=== PATIENT | male | born 1960 | race Two or more races ===

== ENCOUNTER → 2023-04-15 | Outpatient (CLI) | payer MEDICAID ==
[2023-04-15 11:00] LABS: Urine Bacteria NONE SEEN /hpf (None Seen); Urine Blood Negative /uL (Negative); Urine Clarity Clear (Clear); Urine Color Yellow (Yellow); Urine Protein, UAD Negative (Negative); Urine Urobilinogen Normal (Negative); Urine WBC <1 /hpf (0 - 3)
[2023-04-15 11:22] LABS: Prostate Specific Antigen 0.29 ng/mL (0.0-4.0)
[2023-04-15 11:24] LABS: Alanine Aminotransferase 35 U/L (7-40); Albumin 4.4 g/dL (3.2-4.8); Alkaline Phosphatase 82 U/L (46-116); Anion Gap 5 (5-15); Aspartate Aminotransferase 15 U/L (13-40); BUN/Creatinine Ratio 16.3 (10.0-20.0); Blood Urea Nitrogen 14 mg/dL (9-23); Calcium 9.5 mg/dL (8.5-10.1); Carbon Dioxide 27 mmol/L (20-30); Chloride 103 mmol/L (98-107); Glucose 146 mg/dL (74-106); LDL Cholesterol 77 mg/dL (< 100); Potassium 4.5 mmol/L (3.5-5.1); Sodium 135 mmol/L (136-145); Triglycerides 207 mg/dL (< 150)
[2023-04-15 11:25] LABS: Bilirubin, Total 0.6 mg/dL (0.2-1.0); Cholesterol 159 mg/dL (< 200); HDL Cholesterol 33 mg/dL (40-59); Total Protein 7.2 g/dL (5.7-8.2)
[2023-04-15 11:27] LABS: Free T3 3.38 pg/mL (2.3-4.2); Free T4 (Free Thyroxine) 1.05 ng/dL (0.89-1.76)
[2023-04-15 11:41] LABS: Magnesium 1.8 mg/dL (1.6-2.6)
== END | disposition home or self-care (01) ==
LOC: LAB 10:01
PROVIDERS: ATTEND Internal Medicine
DX: I10 Essential (primary) hypertension (principal); E11.9 Type 2 diabetes mellitus without complications
CPT/HCPCS: 36415; 80053; 80061; 81001; 83036; 83735; 84153; 84439; 84443; 84481

== ENCOUNTER → 2023-06-03 | Outpatient (CLI) | payer MEDICAID ==
[2023-06-03 09:41] LABS: Basophils # (auto) 0.1 10 ^3/uL (0-0.2); Eosinophils # (auto) 0.2 10 ^3/uL (0-0.8); Eosinophils % (auto) 3.3 % (0.0-7.0); Hematocrit 46.6 % (41.0-53.0); Hemoglobin 15.7 g/dL (13.5-17.5); Lymphocytes % (auto) 42.4 % (10.0-50.0); Mean Corpuscular Hemoglobin 28.6 pg (28.0-32.0); Mean Corpuscular Hgb Conc. 33.8 g/dL (32.0-36.0); Mean Corpuscular Volume 84.8 fL (80.0-100.0); Monocytes # (auto) 0.6 10 ^3/uL (0-1.3); Monocytes % (auto) 7.8 % (0.0-12.0); Neutrophils # (auto) 3.3 10 ^3/uL (1.6-8.6); Neutrophils % (auto) 45.5 % (37.0-80.0); Nucleated Red Blood Cells % 0.1 %; Red Blood Cells 5.49 10^6/uL (4.5-5.90); Red Cell Distribution Width 13.6 % (11.8-14.3); White Blood Cell 7.2 10^3/uL (4.4-10.8)
[2023-06-03 10:13] LABS: Alanine Aminotransferase 30 U/L (7-40); Albumin 4.4 g/dL (3.2-4.8); Alkaline Phosphatase 99 U/L (46-116); Anion Gap 4 (5-15); Aspartate Aminotransferase 12 U/L (13-40); BUN/Creatinine Ratio 16.1 (10.0-20.0); Bilirubin, Total 0.5 mg/dL (0.2-1.0); Blood Urea Nitrogen 15 mg/dL (9-23); Calcium 9.4 mg/dL (8.5-10.1); Carbon Dioxide 31 mmol/L (20-30); Chloride 101 mmol/L (98-107); Cholesterol 173 mg/dL (< 200); Glucose 173 mg/dL (74-106); HDL Cholesterol 32 mg/dL (40-59); LDL Cholesterol 72 mg/dL (< 100); Potassium 4.3 mmol/L (3.5-5.1); Sodium 136 mmol/L (136-145); Total Protein 6.9 g/dL (5.7-8.2); Triglycerides 349 mg/dL (< 150)
== END | disposition home or self-care (01) ==
LOC: LAB 09:25
PROVIDERS: ATTEND Nurse Practitioner Gerontology
DX: E11.69 Type 2 diabetes mellitus with other specified complication (principal); I10 Essential (primary) hypertension
CPT/HCPCS: 36415; 80053; 80061; 83036; 85025

== ENCOUNTER → 2023-10-31 | Outpatient (CLI) | payer MEDICAID ==
[2023-10-31 09:41] LABS: Urine Bacteria None Seen /hpf (None Seen)
[2023-10-31 10:07] LABS: Basophils # (auto) 0 10 ^3/uL (0-0.2); Basophils % (auto) 0.6 % (0.0-2.0); Eosinophils # (auto) 0.2 10 ^3/uL (0-0.8); Eosinophils % (auto) 3.2 % (0.0-7.0); Hematocrit 46.6 % (41.0-53.0); Hemoglobin 15.8 g/dL (13.5-17.5); Lymphocytes # (auto) 3.5 10 ^3/uL (0.4-5.4); Lymphocytes % (auto) 44.2 % (10.0-50.0); Mean Corpuscular Hgb Conc. 33.9 g/dL (32.0-36.0); Mean Corpuscular Volume 85.4 fL (80.0-100.0); Monocytes # (auto) 0.6 10 ^3/uL (0-1.3); Neutrophils # (auto) 3.4 10 ^3/uL (1.6-8.6); Nucleated Red Blood Cells % 0.1 %; Red Blood Cells 5.46 10^6/uL (4.5-5.90); Red Cell Distribution Width 13.8 % (11.8-14.3); White Blood Cell 7.8 10^3/uL (4.4-10.8)
[2023-10-31 10:31] LABS: Urine Blood 3+ /uL (Negative); Urine Clarity Clear (Clear); Urine Color Light-Yellow (Yellow); Urine Mucus FEW (None Seen); Urine Protein, UAD TRACE (Negative); Urine Specific Gravity 1.027 (1.001-1.035); Urine Urobilinogen Normal (Negative); Urine WBC 7 /hpf (0 - 3)
[2023-10-31 10:38] LABS: Creatinine, Urine 124.69 mg/dL (30.0-125.0)
[2023-10-31 10:43] LABS: Alanine Aminotransferase 41 U/L (7-40); Albumin 4.2 g/dL (3.2-4.8); Alkaline Phosphatase 92 U/L (46-116); Anion Gap 2 (5-15); Aspartate Aminotransferase 21 U/L (13-40); BUN/Creatinine Ratio 14.4 (10.0-20.0); Blood Urea Nitrogen 13 mg/dL (9-23); Calcium 9.3 mg/dL (8.7-10.4); Carbon Dioxide 30 mmol/L (20-30); Chloride 105 mmol/L (98-107); Glucose 154 mg/dL (74-106); LDL Cholesterol 55 mg/dL (< 100); Potassium 4.6 mmol/L (3.5-5.1); Sodium 137 mmol/L (136-145); Triglycerides 201 mg/dL (< 150)
[2023-10-31 10:44] LABS: Bilirubin, Total 0.7 mg/dL (0.2-1.0); Cholesterol 126 mg/dL (< 200); HDL Cholesterol 33 mg/dL (40-59)
[2023-10-31 14:16] LABS: Free T4 (Free Thyroxine) 1.16 ng/dL (0.89-1.76)
== END | disposition home or self-care (01) ==
LOC: LAB 09:22
PROVIDERS: ATTEND Internal Medicine
DX: I10 Essential (primary) hypertension (principal); E11.9 Type 2 diabetes mellitus without complications; E78.49 Other hyperlipidemia; Z71.2 Person consulting for explanation of examination or test findings
CPT/HCPCS: 36415; 80053; 80061; 81001; 82043; 82306; 82570; 82607; 83036; 84439; 84443; 85025

== ENCOUNTER 2023-11-07 08:58 | Inpatient (IN) | payer MEDICAID ==
[~2023-11-07] VITALS: Ht 167.6 cm; Wt 93.9 kg
[2023-11-07 11:02] VITALS: PULSE 75; RESP 18; O2SAT 94
[2023-11-07 11:25] LABS: Urine Bacteria None Seen /hpf (None Seen)
[2023-11-07 11:34] LABS: Urine Blood 3+ /uL (Negative); Urine Clarity Clear (Clear); Urine Color Light-Yellow (Yellow); Urine Protein, UAD Negative (Negative); Urine Specific Gravity 1.023 (1.001-1.035); Urine Urobilinogen Normal (Negative); Urine WBC 1 /hpf (0 - 3)
[2023-11-07] MEDS: ONDANSETRON HCL 4 MG/2 ML VIAL IV ONE (12:41)
[2023-11-07] MEDS: SODIUM CHLORIDE 0.9% 1,000 ML IV ONE (12:41)
[2023-11-07] MEDS: KETOROLAC TROMETH 30 MG/ML 1ML VIAL IV ONE (12:41)
[2023-11-07] MEDS: MORPHINE SULFATE 4 MG/ML SYR/VIAL IV ONE (12:44)
[2023-11-07 14:22] LABS: Basophils # (auto) 0 10 ^3/uL (0-0.2); Basophils % (auto) 0.3 % (0.0-2.0); Eosinophils # (auto) 0.1 10 ^3/uL (0-0.8); Eosinophils % (auto) 0.7 % (0.0-7.0); Hematocrit 46.5 % (41.0-53.0); Hemoglobin 15.6 g/dL (13.5-17.5); Lymphocytes # (auto) 3.2 10 ^3/uL (0.4-5.4); Lymphocytes % (auto) 29.7 % (10.0-50.0); Mean Corpuscular Hemoglobin 28.9 pg (28.0-32.0); Mean Corpuscular Hgb Conc. 33.5 g/dL (32.0-36.0); Mean Corpuscular Volume 86.3 fL (80.0-100.0); Monocytes # (auto) 0.9 10 ^3/uL (0-1.3); Monocytes % (auto) 8.8 % (0.0-12.0); Neutrophils # (auto) 6.4 10 ^3/uL (1.6-8.6); Neutrophils % (auto) 60.5 % (37.0-80.0); Nucleated Red Blood Cells % 0.1 %; Platelet Count (auto) 221 10^3/uL (140-450); Red Blood Cells 5.38 10^6/uL (4.5-5.90); Red Cell Distribution Width 14.3 % (11.8-14.3); White Blood Cell 10.7 10^3/uL (4.4-10.8)
[2023-11-07 14:45] LABS: Alanine Aminotransferase 38 U/L (7-40); Albumin 4.1 g/dL (3.2-4.8); Alkaline Phosphatase 76 U/L (46-116); Anion Gap 6 (5-15); Aspartate Aminotransferase 18 U/L (13-40); BUN/Creatinine Ratio 23.1 (10.0-20.0); Blood Urea Nitrogen 21 mg/dL (9-23); Carbon Dioxide 26 mmol/L (20-30); Chloride 106 mmol/L (98-107); Glucose 149 mg/dL (74-106); Lipase 240 U/L (12-53); Potassium 4.4 mmol/L (3.5-5.1); Sodium 138 mmol/L (136-145)
[2023-11-07 14:46] LABS: Bilirubin, Total 0.8 mg/dL (0.2-1.0); Total Protein 6.8 g/dL (5.7-8.2)
[2023-11-07] MEDS ORDERED: DEXTROSE (50%) 50ML SYRG IV PRN (15:00)
[2023-11-07] MEDS: TAMSULOSIN HYDROCHLORIDE 0.4 MG CAP PO SCH (15:23)
[2023-11-07] MEDS: MANNITOL FTV 25% 12.5 GM/50 ML 50 ML IV ONE (15:54)
[2023-11-07] MEDS ORDERED: HYDROmorphone HCL 2 MG/ML VL/or syr IV PRN (16:15)
[2023-11-07] MEDS ORDERED: ONDANSETRON HCL 4 MG/2 ML VIAL IV PRN (16:15)
[2023-11-07] MEDS ORDERED: ACETAMINOPHEN 325 MG TAB PO PRN (16:15)
[2023-11-07] MEDS: ACCU-CHEK COMFORT CURVE STRIP VI SCH (17:00)
[2023-11-07] MEDS: KETOROLAC TROMETH 30 MG/ML 1ML VIAL IV PRN (17:24)
[2023-11-07] MEDS: InsuLIN REG 1unit/0.01ml Soln (100units/ml) SC SCH (17:50)
[2023-11-07 18:20] VITALS: BP 149/86; PULSE 72; RESP 19; TEMP 98.6; O2SAT 94
[2023-11-07 18:37] VITALS: BP 149/86; PULSE 72; RESP 19; TEMP 98.7; O2SAT 94
[2023-11-07 20:00] VITALS: PULSE 82; RESP 20; O2SAT 94
[2023-11-07 21:00] VITALS: BP 134/77; PULSE 82; RESP 20; TEMP 98.1; O2SAT 94
[2023-11-07] MEDS: SODIUM CHLOR 0.9% PF (SALINE LOCK) 10ML VIAL/SYR IV SCH (21:43)
[2023-11-08] VITALS (7 sets, daily range): BP systolic 120–147; BP diastolic 69–82; PULSE 78–88; RESP 16–20; TEMP 97.6–98.5; O2SAT 94–96
[2023-11-08 04:55] LABS: Basophils # (auto) 0 10 ^3/uL (0-0.2); Basophils % (auto) 0.3 % (0.0-2.0); Eosinophils # (auto) 0.1 10 ^3/uL (0-0.8); Eosinophils % (auto) 1.2 % (0.0-7.0); Hematocrit 44.7 % (41.0-53.0); Hemoglobin 15.2 g/dL (13.5-17.5); Lymphocytes # (auto) 1.8 10 ^3/uL (0.4-5.4); Lymphocytes % (auto) 18.3 % (10.0-50.0); Mean Corpuscular Hemoglobin 29.1 pg (28.0-32.0); Mean Corpuscular Hgb Conc. 33.9 g/dL (32.0-36.0); Mean Corpuscular Volume 85.8 fL (80.0-100.0); Monocytes # (auto) 1.1 10 ^3/uL (0-1.3); Monocytes % (auto) 10.9 % (0.0-12.0); Neutrophils # (auto) 6.7 10 ^3/uL (1.6-8.6); Neutrophils % (auto) 69.3 % (37.0-80.0); Platelet Count (auto) 212 10^3/uL (140-450); Red Blood Cells 5.22 10^6/uL (4.5-5.90); White Blood Cell 9.6 10^3/uL (4.4-10.8)
[2023-11-08 05:28] LABS: Alanine Aminotransferase 31 U/L (7-40); Albumin 3.9 g/dL (3.2-4.8); Alkaline Phosphatase 75 U/L (46-116); Anion Gap 8 (5-15); Aspartate Aminotransferase 15 U/L (13-40); BUN/Creatinine Ratio 19.4 (10.0-20.0); Bilirubin, Total 0.7 mg/dL (0.2-1.0); Blood Urea Nitrogen 25 mg/dL (9-23); Carbon Dioxide 25 mmol/L (20-30); Chloride 103 mmol/L (98-107); Glucose 186 mg/dL (74-106); Potassium 4.4 mmol/L (3.5-5.1); Sodium 136 mmol/L (136-145); Total Protein 6.7 g/dL (5.7-8.2)
[2023-11-08] MEDS: PANTOPRAZOLE 40 MG/10 ML VIAL INJ IV SCH (09:34)
[2023-11-08] MEDS: HYDROcodone-ACET 5/325MG TAB PO PRN (09:39)
[2023-11-08] MEDS ORDERED: ATOR10TA52 PO (14:50)
[2023-11-08] MEDS ORDERED: OMEP-434 PO (14:50)
[2023-11-08] MEDS ORDERED: LISI2.5T47 PO (14:50)
[2023-11-08] MEDS ORDERED: CHOL100029 PO (14:50)
[2023-11-08] MEDS ORDERED: ACAR25TA PO (14:50)
[2023-11-09 01:00] VITALS: BP 142/77; PULSE 75; RESP 19; TEMP 98.6; O2SAT 95
[2023-11-09 05:00] VITALS: BP 128/80; PULSE 83; RESP 17; TEMP 98.3; O2SAT 94
[2023-11-09] MEDS: PANTOPRAZOLE 40 MG TAB PO SCH (06:04)
[2023-11-09 06:39] LABS: Basophils # (auto) 0 10 ^3/uL (0-0.2); Basophils % (auto) 0.5 % (0.0-2.0); Eosinophils # (auto) 0.1 10 ^3/uL (0-0.8); Eosinophils % (auto) 1.3 % (0.0-7.0); Hematocrit 44.7 % (41.0-53.0); Hemoglobin 14.8 g/dL (13.5-17.5); Lymphocytes % (auto) 20.1 % (10.0-50.0); Mean Corpuscular Hemoglobin 28.4 pg (28.0-32.0); Mean Corpuscular Hgb Conc. 33.1 g/dL (32.0-36.0); Mean Corpuscular Volume 85.9 fL (80.0-100.0); Monocytes # (auto) 0.7 10 ^3/uL (0-1.3); Monocytes % (auto) 7.7 % (0.0-12.0); Neutrophils # (auto) 6.9 10 ^3/uL (1.6-8.6); Neutrophils % (auto) 70.4 % (37.0-80.0); Nucleated Red Blood Cells % 0.2 %; Platelet Count (auto) 206 10^3/uL (140-450); Red Cell Distribution Width 13.8 % (11.8-14.3); White Blood Cell 9.7 10^3/uL (4.4-10.8)
[2023-11-09 07:09] LABS: Alanine Aminotransferase 27 U/L (7-40); Albumin 3.8 g/dL (3.2-4.8); Alkaline Phosphatase 74 U/L (46-116); Anion Gap 5 (5-15); Aspartate Aminotransferase 16 U/L (13-40); Bilirubin, Total 0.5 mg/dL (0.2-1.0); Calcium 8.9 mg/dL (8.7-10.4); Carbon Dioxide 23 mmol/L (20-30); Chloride 104 mmol/L (98-107); Glucose 208 mg/dL (74-106); Potassium 5.3 mmol/L (3.5-5.1); Sodium 132 mmol/L (136-145); Total Protein 6.6 g/dL (5.7-8.2)
[2023-11-09 07:36] LABS: BUN/Creatinine Ratio 14.8 (10.0-20.0); Blood Urea Nitrogen 20 mg/dL (9-23)
[2023-11-09] MEDS: cefTRIAXone 1GM/50ML D5W 50 ML IV SCH (08:04)
[2023-11-09] MEDS: SODIUM ZIRCONIUM CYCL 10 GM PAK PO ONE (08:04)
[2023-11-09] MEDS: SODIUM CHLORIDE 0.9% 1,000 ML IV SCH (08:04)
[2023-11-09 09:00] VITALS: BP 146/80; PULSE 69; RESP 18; TEMP 98; O2SAT 97
[2023-11-09] MEDS: INSULIN LANTUS (GLARGINE) 1 /0.01ml (100units/ml) SC SCH (12:32)
[2023-11-09 13:00] VITALS: BP 141/78; PULSE 80; RESP 18; TEMP 98.4; O2SAT 95
[2023-11-09] MEDS: MANNITOL FTV 25% 12.5 GM/50 ML 50 ML IV ONE (13:55)
[2023-11-09 17:00] VITALS: BP 156/83; PULSE 87; RESP 18; TEMP 99.1; O2SAT 96
[2023-11-09] MEDS: MORPHINE SULFATE INJ 2 MG/ml SYRG IV PRN (17:39)
[2023-11-09] MEDS: hydrALAZINE HCL 20 MG/ML VL IV PRN (18:10)
[2023-11-09] MEDS: HYDROcodone-ACET 7.5/325MG TAB PO PRN (20:51)
[2023-11-09 22:00] VITALS: BP 153/89; PULSE 93; RESP 17; TEMP 99.2; O2SAT 96
[2023-11-10] VITALS (10 sets, daily range): BP systolic 140–157; BP diastolic 73–93; PULSE 81–88; RESP 14–20; TEMP 98.2–99; O2SAT 95–96
[2023-11-10 07:02] LABS: Basophils # (auto) 0 10 ^3/uL (0-0.2); Basophils % (auto) 0.4 % (0.0-2.0); Eosinophils # (auto) 0 10 ^3/uL (0-0.8); Eosinophils % (auto) 0.4 % (0.0-7.0); Hemoglobin 14.5 g/dL (13.5-17.5); Lymphocytes # (auto) 1.7 10 ^3/uL (0.4-5.4); Lymphocytes % (auto) 18.4 % (10.0-50.0); Mean Corpuscular Hemoglobin 28.6 pg (28.0-32.0); Mean Corpuscular Hgb Conc. 33.6 g/dL (32.0-36.0); Mean Corpuscular Volume 85.2 fL (80.0-100.0); Monocytes # (auto) 0.8 10 ^3/uL (0-1.3); Monocytes % (auto) 8.2 % (0.0-12.0); Neutrophils # (auto) 6.9 10 ^3/uL (1.6-8.6); Neutrophils % (auto) 72.6 % (37.0-80.0); Platelet Count (auto) 216 10^3/uL (140-450); Red Blood Cells 5.05 10^6/uL (4.5-5.90); Red Cell Distribution Width 13.8 % (11.8-14.3); White Blood Cell 9.5 10^3/uL (4.4-10.8)
[2023-11-10 07:20] LABS: Alanine Aminotransferase 21 U/L (7-40); Albumin 3.9 g/dL (3.2-4.8); Alkaline Phosphatase 69 U/L (46-116); Anion Gap 6 (5-15); Aspartate Aminotransferase 10 U/L (13-40); BUN/Creatinine Ratio 11.8 (10.0-20.0); Blood Urea Nitrogen 15 mg/dL (9-23); Calcium 8.7 mg/dL (8.7-10.4); Carbon Dioxide 25 mmol/L (20-30); Chloride 105 mmol/L (98-107); Glucose 183 mg/dL (74-106); Potassium 4.3 mmol/L (3.5-5.1); Sodium 136 mmol/L (136-145)
[2023-11-10 07:21] LABS: Bilirubin, Total 0.7 mg/dL (0.2-1.0); Total Protein 6.6 g/dL (5.7-8.2)
[2023-11-10] MEDS ORDERED: amLODIPine BESYLATE 5 MG TAB PO STA (09:50)
[2023-11-10] MEDS: amLODIPine BESYLATE 5 MG TAB PO SCH (12:41)
[2023-11-10] MEDS: LACTULOSE 20Gm/30ML SOLN PO ONE (12:44)
[2023-11-11] VITALS (12 sets, daily range): BP systolic 135–186; BP diastolic 72–102; PULSE 78–100; RESP 16–18; TEMP 97.8–98.4; O2SAT 92–100
[2023-11-11 06:58] LABS: Basophils # (auto) 0 10 ^3/uL (0-0.2); Basophils % (auto) 0.3 % (0.0-2.0); Eosinophils # (auto) 0 10 ^3/uL (0-0.8); Eosinophils % (auto) 0.1 % (0.0-7.0); Hematocrit 45.4 % (41.0-53.0); Hemoglobin 15.5 g/dL (13.5-17.5); Lymphocytes # (auto) 1.4 10 ^3/uL (0.4-5.4); Lymphocytes % (auto) 13.4 % (10.0-50.0); Mean Corpuscular Hemoglobin 29.4 pg (28.0-32.0); Mean Corpuscular Hgb Conc. 34.1 g/dL (32.0-36.0); Mean Corpuscular Volume 86.3 fL (80.0-100.0); Monocytes # (auto) 0.8 10 ^3/uL (0-1.3); Monocytes % (auto) 7.8 % (0.0-12.0); Neutrophils # (auto) 8.5 10 ^3/uL (1.6-8.6); Neutrophils % (auto) 78.4 % (37.0-80.0); Nucleated Red Blood Cells % 0.1 %; Platelet Count (auto) 259 10^3/uL (140-450); Red Blood Cells 5.26 10^6/uL (4.5-5.90); Red Cell Distribution Width 13.6 % (11.8-14.3); White Blood Cell 10.8 10^3/uL (4.4-10.8)
[2023-11-11 06:59] LABS: INR 1.04 (0.9-1.15); Partial Thromboplastin Time 27.8 SEC (24.5-34.5)
[2023-11-11 07:02] LABS: Anion Gap 9 (5-15); Calcium 9.3 mg/dL (8.7-10.4); Carbon Dioxide 24 mmol/L (20-30); Chloride 102 mmol/L (98-107); Potassium 4.1 mmol/L (3.5-5.1); Sodium 135 mmol/L (136-145)
[2023-11-11 07:09] LABS: BUN/Creatinine Ratio 10.7 (10.0-20.0); Blood Urea Nitrogen 13 mg/dL (9-23); Glucose 208 mg/dL (74-106)
[2023-11-11] MEDS ORDERED: fentaNYL CITRATE 100 MCG/2 ML VL ONE ×2 (15:56→16:40)
[2023-11-11] MEDS ORDERED: PROPOFOL 10 MG/ML 20 ML IV ONE (15:56)
[2023-11-11] MEDS: IOHEXOL 300 MG/ML 100ML BOTTLE IJ ONE (17:44)
[2023-11-11] MEDS: CIPROFLOXACIN 400MG/200ML 200 ML IV ONE (17:44)
[2023-11-11] MEDS ORDERED: MEPERIDINE HCL (25 MG/ML) 1ML VIAL IV PRN (18:00)
[2023-11-11] MEDS: ONDANSETRON HCL 4 MG/2 ML VIAL IV ONE (18:00)
[2023-11-11] MEDS ORDERED: HYDROmorphone HCL 2 MG/ML VL/or syr IV PRN (18:00)
[2023-11-12] VITALS (7 sets, daily range): BP systolic 115–151; BP diastolic 62–89; PULSE 84–96; RESP 16–19; TEMP 97.6–98.2; O2SAT 92–95
[2023-11-12 06:48] LABS: Basophils # (auto) 0 10 ^3/uL (0-0.2); Basophils % (auto) 0.5 % (0.0-2.0); Eosinophils # (auto) 0 10 ^3/uL (0-0.8); Eosinophils % (auto) 0.1 % (0.0-7.0); Hematocrit 41.4 % (41.0-53.0); Lymphocytes # (auto) 1.3 10 ^3/uL (0.4-5.4); Lymphocytes % (auto) 13.4 % (10.0-50.0); Mean Corpuscular Hemoglobin 28.8 pg (28.0-32.0); Mean Corpuscular Hgb Conc. 33.9 g/dL (32.0-36.0); Monocytes # (auto) 0.7 10 ^3/uL (0-1.3); Monocytes % (auto) 6.9 % (0.0-12.0); Neutrophils # (auto) 7.9 10 ^3/uL (1.6-8.6); Neutrophils % (auto) 79.1 % (37.0-80.0); Platelet Count (auto) 252 10^3/uL (140-450); Red Blood Cells 4.87 10^6/uL (4.5-5.90); Red Cell Distribution Width 13.6 % (11.8-14.3); White Blood Cell 9.9 10^3/uL (4.4-10.8)
[2023-11-12 06:59] LABS: Alanine Aminotransferase 25 U/L (7-40); Albumin 3.8 g/dL (3.2-4.8); Alkaline Phosphatase 71 U/L (46-116); Anion Gap 4 (5-15); Aspartate Aminotransferase 9 U/L (13-40); BUN/Creatinine Ratio 15.6 (10.0-20.0); Blood Urea Nitrogen 14 mg/dL (9-23); Calcium 8.9 mg/dL (8.7-10.4); Carbon Dioxide 28 mmol/L (20-30); Chloride 107 mmol/L (98-107); Glucose 213 mg/dL (74-106); Potassium 4.6 mmol/L (3.5-5.1); Sodium 139 mmol/L (136-145)
[2023-11-12 07:00] LABS: Bilirubin, Total 0.5 mg/dL (0.2-1.0); Total Protein 6.6 g/dL (5.7-8.2)
[2023-11-12] MEDS: ENOXAPARIN SOD 40 MG/0.4 ML SYRINGE SC SCH (09:34)
[2023-11-12] MEDS: INSULIN LANTUS (GLARGINE) 1 /0.01ml (100units/ml) SC SCH (10:00)
[2023-11-12] MEDS ORDERED: AML5T PO (19:29)
[2023-11-12] MEDS ORDERED: TAMS-35 PO (19:29)
[2023-11-12] MEDS ORDERED: ACET-1882 PO (19:29)
== END 2023-11-12 19:58 | disposition home or self-care (01) | DRG 465 ==
LOC: ER 08:58 → OVERFLOW 16:09 → WEST WING 16:09
PROVIDERS: ADMIT Internal Medicine Pulmonary Disease; ATTEND Emergency Medicine
PROC: 0TF78ZZ Fragmentation in Left Ureter, Via Natural or Artificial Opening Endoscopic (ICD-10-PCS; 2023-11-11)
PROC: 0T778DZ Dilation of Left Ureter with Intraluminal Device, Via Natural or Artificial Opening Endoscopic (ICD-10-PCS; principal; 2023-11-11 16:14)
PROC: BT1F1ZZ Fluoroscopy of Left Kidney, Ureter and Bladder using Low Osmolar Contrast (ICD-10-PCS; 2023-11-11 16:14)
DX: N13.2 Hydronephrosis with renal and ureteral calculous obstruction (principal); N17.9 Acute kidney failure, unspecified; E11.9 Type 2 diabetes mellitus without complications; I10 Essential (primary) hypertension; E87.5 Hyperkalemia
CPT/HCPCS: 36415; 74018; 74176; 76775; 80048; 80053; 81001; 82962; 83690; 83735; 85025; 85610; 85730; 86850; 86900; 86901; 93005; 96361; 96365; 96375; 96376; G0378; J1815; J1885; J2405; J2470; J2704

== ENCOUNTER 2023-11-20 10:09 | Inpatient (IN) | payer MEDICAID ==
[~2023-11-20] VITALS: Ht 165.1 cm; Wt 90.9 kg
[~2023-11-20 10:09] MED LIST: ACAR25TA PO; ACET-1882 PO; AML5T PO; ATOR10TA52 PO; CHOL100029 PO; LISI2.5T47 PO; OMEP-434 PO; TAMS-35 PO
[2023-11-20 10:53] LABS: Urine Bacteria None Seen /hpf (None Seen)
[2023-11-20 11:12] LABS: Basophils # (auto) 0 10 ^3/uL (0-0.2); Basophils % (auto) 0.6 % (0.0-2.0); Eosinophils # (auto) 0.2 10 ^3/uL (0-0.8); Eosinophils % (auto) 2.7 % (0.0-7.0); Hematocrit 46.6 % (41.0-53.0); Hemoglobin 15.8 g/dL (13.5-17.5); Lymphocytes # (auto) 3.4 10 ^3/uL (0.4-5.4); Lymphocytes % (auto) 45.6 % (10.0-50.0); Mean Corpuscular Hemoglobin 29.2 pg (28.0-32.0); Mean Corpuscular Volume 85.7 fL (80.0-100.0); Monocytes # (auto) 0.5 10 ^3/uL (0-1.3); Monocytes % (auto) 6.4 % (0.0-12.0); Neutrophils # (auto) 3.4 10 ^3/uL (1.6-8.6); Neutrophils % (auto) 44.7 % (37.0-80.0); Nucleated Red Blood Cells % 0.1 %; Platelet Count (auto) 280 10^3/uL (140-450); Red Blood Cells 5.43 10^6/uL (4.5-5.90); Red Cell Distribution Width 13.6 % (11.8-14.3); White Blood Cell 7.6 10^3/uL (4.4-10.8)
[2023-11-20 11:15] LABS: Anion Gap 3 (5-15); Carbon Dioxide 29 mmol/L (20-30); Chloride 104 mmol/L (98-107); Potassium 4.8 mmol/L (3.5-5.1); Sodium 136 mmol/L (136-145)
[2023-11-20 11:16] LABS: Calcium 9.3 mg/dL (8.7-10.4)
[2023-11-20 11:21] LABS: BUN/Creatinine Ratio 15.1 (10.0-20.0); Blood Urea Nitrogen 14 mg/dL (9-23); Glucose 223 mg/dL (74-106)
[2023-11-20 11:39] LABS: INR 1.01 (0.9-1.15); Partial Thromboplastin Time 27.8 SEC (24.5-34.5); Prothrombin Time 10.9 sec (9.3-11.8)
[2023-11-20 12:37] LABS: Urine Blood 3+ /uL (Negative); Urine Clarity Turbid (Clear); Urine Color Yellow (Yellow); Urine Mucus FEW (None Seen); Urine Protein, UAD 2+ (Negative); Urine Specific Gravity 1.021 (1.001-1.035); Urine Urobilinogen Normal (Negative); Urine WBC 14 /hpf (0 - 3); Urine pH 5.5 (5.0-9.0)
[2023-11-20 13:36] VITALS: PULSE 79; RESP 16; O2SAT 97
[2023-11-20] MEDS: KETOROLAC TROMETH 30 MG/ML 1ML VIAL IV ONE (14:07)
[2023-11-20] MEDS: cefTRIAXone 1GM/50ML D5W 50 ML IV ONE (14:07)
[2023-11-20] MEDS ORDERED: ONDANSETRON HCL 4 MG/2 ML VIAL IV PRN (15:45)
[2023-11-20] MEDS ORDERED: DOCUSATE SOD 100 MG CAP PO PRN (15:45)
[2023-11-20] MEDS ORDERED: HYDROcodone-ACET 5/325MG TAB PO PRN (15:45)
[2023-11-20] MEDS ORDERED: HYDROmorphone HCL 2 MG/ML VL/or syr IV PRN (15:45)
[2023-11-20] MEDS: LACTATED RINGER'S 1,000 ML IV ONE (15:52)
[2023-11-20] MEDS: ACARBOSE 25 MG PO SCH (18:00)
[2023-11-20] MEDS: TAMSULOSIN HYDROCHLORIDE 0.4 MG CAP PO SCH (18:12)
[2023-11-20 19:10] VITALS: RESP 16; O2SAT 97
[2023-11-20] MEDS: ATORVASTATIN 20 MG TAB PO SCH (21:14)
[2023-11-20 22:40] VITALS: PULSE 75; RESP 18; O2SAT 95
[2023-11-21] VITALS (7 sets, daily range): BP systolic 113–142; BP diastolic 70–80; PULSE 69–77; RESP 16–18; TEMP 97.5–98.4; O2SAT 94–96
[2023-11-21 06:18] LABS: Alanine Aminotransferase 41 U/L (7-40); Albumin 3.7 g/dL (3.2-4.8); Alkaline Phosphatase 80 U/L (46-116); Anion Gap 6 (5-15); Aspartate Aminotransferase 12 U/L (13-40); BUN/Creatinine Ratio 17.4 (10.0-20.0); Blood Urea Nitrogen 16 mg/dL (9-23); Calcium 9.1 mg/dL (8.7-10.4); Carbon Dioxide 27 mmol/L (20-30); Chloride 105 mmol/L (98-107); Glucose 207 mg/dL (74-106); Sodium 138 mmol/L (136-145)
[2023-11-21 06:19] LABS: Bilirubin, Total 0.4 mg/dL (0.2-1.0); Total Protein 6.5 g/dL (5.7-8.2)
[2023-11-21 06:21] LABS: Basophils # (auto) 0 10 ^3/uL (0-0.2); Basophils % (auto) 0.5 % (0.0-2.0); Eosinophils # (auto) 0.3 10 ^3/uL (0-0.8); Eosinophils % (auto) 5.2 % (0.0-7.0); Hematocrit 41.8 % (41.0-53.0); Hemoglobin 14.3 g/dL (13.5-17.5); Lymphocytes # (auto) 3.1 10 ^3/uL (0.4-5.4); Lymphocytes % (auto) 49.5 % (10.0-50.0); Mean Corpuscular Hgb Conc. 34.3 g/dL (32.0-36.0); Mean Corpuscular Volume 84.6 fL (80.0-100.0); Monocytes # (auto) 0.5 10 ^3/uL (0-1.3); Monocytes % (auto) 8.7 % (0.0-12.0); Neutrophils # (auto) 2.3 10 ^3/uL (1.6-8.6); Neutrophils % (auto) 36.1 % (37.0-80.0); Nucleated Red Blood Cells % 0.1 %; Platelet Count (auto) 243 10^3/uL (140-450); Red Blood Cells 4.94 10^6/uL (4.5-5.90); Red Cell Distribution Width 13.3 % (11.8-14.3); White Blood Cell 6.3 10^3/uL (4.4-10.8)
[2023-11-21] MEDS ORDERED: OMEPRAZOLE MAGNESIUM 20 MG PO SCH (10:00)
[2023-11-21] MEDS: CHOLECALCIFEROL (VITD3) 1,000UNIT=25mCg TAB PO SCH (11:19)
[2023-11-21] MEDS: LISINOPRIL 5 MG TAB PO SCH (11:20)
[2023-11-21] MEDS: ACETAMINOPHEN 325 MG TAB PO PRN (11:20)
[2023-11-21] MEDS: PANTOPRAZOLE 40 MG TAB PO SCH (11:20)
[2023-11-21] MEDS: cefTRIAXone 1GM/50ML D5W 50 ML IV SCH (11:21)
[2023-11-21] MEDS: amLODIPine BESYLATE 5 MG TAB PO SCH (11:21)
[2023-11-21] MEDS: ENOXAPARIN SOD 40 MG/0.4 ML SYRINGE SC SCH (11:22)
[2023-11-22] VITALS (7 sets, daily range): BP systolic 124–144; BP diastolic 72–83; PULSE 72–94; RESP 17–19; TEMP 97.8–98.7; O2SAT 93–96
[2023-11-22] MEDS: PANTOPRAZOLE 40 MG TAB PO SCH (05:47)
[2023-11-22 06:44] LABS: Basophils # (auto) 0.1 10 ^3/uL (0-0.2); Basophils % (auto) 0.8 % (0.0-2.0); Eosinophils # (auto) 0.3 10 ^3/uL (0-0.8); Hematocrit 43.5 % (41.0-53.0); Hemoglobin 14.8 g/dL (13.5-17.5); Lymphocytes # (auto) 3.1 10 ^3/uL (0.4-5.4); Mean Corpuscular Hemoglobin 28.8 pg (28.0-32.0); Mean Corpuscular Volume 84.8 fL (80.0-100.0); Monocytes # (auto) 0.6 10 ^3/uL (0-1.3); Monocytes % (auto) 7.6 % (0.0-12.0); Neutrophils # (auto) 3.4 10 ^3/uL (1.6-8.6); Neutrophils % (auto) 45.6 % (37.0-80.0); Platelet Count (auto) 237 10^3/uL (140-450); Red Blood Cells 5.13 10^6/uL (4.5-5.90); Red Cell Distribution Width 13.6 % (11.8-14.3); White Blood Cell 7.4 10^3/uL (4.4-10.8)
[2023-11-22 06:58] LABS: Alanine Aminotransferase 43 U/L (7-40); Alkaline Phosphatase 87 U/L (46-116); Anion Gap 4 (5-15); Aspartate Aminotransferase 14 U/L (13-40); BUN/Creatinine Ratio 13.2 (10.0-20.0); Blood Urea Nitrogen 12 mg/dL (9-23); Calcium 9.3 mg/dL (8.7-10.4); Carbon Dioxide 27 mmol/L (20-30); Chloride 105 mmol/L (98-107); Glucose 208 mg/dL (74-106); Potassium 4.2 mmol/L (3.5-5.1); Sodium 136 mmol/L (136-145)
[2023-11-22 06:59] LABS: Albumin 4.1 g/dL (3.2-4.8); Bilirubin, Total 0.5 mg/dL (0.2-1.0)
[2023-11-22] MEDS ORDERED: CEPH250C2 PO (17:20)
== END 2023-11-22 18:26 | disposition home or self-care (01) | DRG 463 ==
LOC: ER 10:09 → OVERFLOW 15:26 → WEST WING 15:26
PROVIDERS: ADMIT Internal Medicine Pulmonary Disease; ATTEND Emergency Medicine
DX: N30.01 Acute cystitis with hematuria (principal); E11.9 Type 2 diabetes mellitus without complications; I10 Essential (primary) hypertension; Z79.1 Long term (current) use of non-steroidal anti-inflammatories (NSAID); Z79.899 Other long term (current) drug therapy
CPT/HCPCS: 36415; 74176; 80048; 80053; 81001; 85025; 85610; 85730; 87040; 87081; 87086; G0378; J1885

== ENCOUNTER → 2024-01-10 | Outpatient (CLI) | payer MEDICAID ==
[~2024-01-10] MED LIST changes: +CEPH250C2 PO
[2024-01-10 09:22] LABS: Urine Bacteria None Seen /hpf (None Seen); Urine WBC None Seen /hpf (0 - 3)
[2024-01-10 09:39] LABS: Basophils # (auto) 0 10 ^3/uL (0-0.2); Basophils % (auto) 0.6 % (0.0-2.0); Eosinophils # (auto) 0.2 10 ^3/uL (0-0.8); Eosinophils % (auto) 2.5 % (0.0-7.0); Hematocrit 44.1 % (41.0-53.0); Hemoglobin 14.8 g/dL (13.5-17.5); Lymphocytes # (auto) 2.7 10 ^3/uL (0.4-5.4); Lymphocytes % (auto) 39.7 % (10.0-50.0); Mean Corpuscular Hemoglobin 28.3 pg (28.0-32.0); Mean Corpuscular Hgb Conc. 33.5 g/dL (32.0-36.0); Mean Corpuscular Volume 84.5 fL (80.0-100.0); Monocytes # (auto) 0.5 10 ^3/uL (0-1.3); Monocytes % (auto) 7.9 % (0.0-12.0); Neutrophils # (auto) 3.4 10 ^3/uL (1.6-8.6); Neutrophils % (auto) 49.3 % (37.0-80.0); Platelet Count (auto) 244 10^3/uL (140-450); Red Blood Cells 5.22 10^6/uL (4.5-5.90); Red Cell Distribution Width 13.9 % (11.8-14.3); White Blood Cell 6.8 10^3/uL (4.4-10.8)
[2024-01-10 09:50] LABS: Alanine Aminotransferase 38 U/L (7-40); Albumin 4.3 g/dL (3.2-4.8); Alkaline Phosphatase 123 U/L (46-116); Anion Gap 5 (5-15); Aspartate Aminotransferase 12 U/L (13-40); BUN/Creatinine Ratio 13.8 (10.0-20.0); Bilirubin, Total 0.6 mg/dL (0.2-1.0); Blood Urea Nitrogen 15 mg/dL (9-23); Calcium 9.6 mg/dL (8.7-10.4); Carbon Dioxide 30 mmol/L (20-31); Chloride 100 mmol/L (98-107); Cholesterol 151 mg/dL (< 200); Glucose 385 mg/dL (74-106); HDL Cholesterol 36 mg/dL (40-59); LDL Cholesterol 61 mg/dL (< 100); Potassium 4.7 mmol/L (3.5-5.1); Sodium 135 mmol/L (136-145); Total Protein 7.4 g/dL (5.7-8.2); Triglycerides 347 mg/dL (< 150)
[2024-01-10 10:15] LABS: Creatinine, Urine 62.37 mg/dL (30.0-125.0)
[2024-01-10 13:13] LABS: Urine Blood 3+ /uL (Negative); Urine Clarity Clear (Clear); Urine Color Colorless (Yellow); Urine Protein, UAD TRACE (Negative); Urine Specific Gravity 1.037 (1.001-1.035); Urine Urobilinogen Normal (Negative)
[2024-01-10 14:22] LABS: Urine Epithelial Cast FEW /hpf (<5)
== END | disposition home or self-care (01) ==
LOC: LAB 09:04
PROVIDERS: ATTEND Internal Medicine
DX: I10 Essential (primary) hypertension (principal); E11.69 Type 2 diabetes mellitus with other specified complication; N13.30 Unspecified hydronephrosis; N20.1 Calculus of ureter
CPT/HCPCS: 36415; 80053; 80061; 81001; 82043; 82570; 83036; 84439; 84443; 85025

== ENCOUNTER 2024-01-21 16:45 | Inpatient (IN) | payer MEDICARE, MEDICAID ==
[~2024-01-21] VITALS: Ht 167.6 cm; Wt 88.9 kg
[2024-01-21 17:11] VITALS: BP 166/81; PULSE 72; RESP 17; TEMP 97.9; O2SAT 94
[2024-01-21] MEDS ORDERED: NITROGLYCERIN 0.4 MG SL TAB SL PRN (17:15)
[2024-01-21] MEDS ORDERED: MORPHINE SULFATE INJ 2 MG/ml SYRG IV PRN (17:15)
[2024-01-21] MEDS: PIPERACILLIN-TAZOB 3.375GM 100 ML IV ONE (18:03)
--- NOTE | 2024-01-21 18:16 | DVH ---
EXAM: XY CHEST PORTABLE TECHNIQUE: Single frontal chest radiograph CLINICAL HISTORY: PRE-OP COMPARISON: None Findings/Impression: Frontal chest radiograph demonstrates no acute osseous or superficial soft tissue abnormalities. The trachea is midline. The cardiac silhouette and mediastinum are within normal limits. Mild to moderate elevation of the right hemidiaphragm. No pneumothorax, pleural effusions, or consolidations.
[2024-01-21 18:29] LABS: Basophils # (auto) 0 10 ^3/uL (0-0.2); Basophils % (auto) 0.6 % (0.0-2.0); Eosinophils # (auto) 0.1 10 ^3/uL (0-0.8); Eosinophils % (auto) 2.1 % (0.0-7.0); Hematocrit 42.4 % (41.0-53.0); Hemoglobin 14.7 g/dL (13.5-17.5); Lymphocytes # (auto) 2.9 10 ^3/uL (0.4-5.4); Lymphocytes % (auto) 41.2 % (10.0-50.0); Mean Corpuscular Hemoglobin 28.9 pg (28.0-32.0); Mean Corpuscular Hgb Conc. 34.6 g/dL (32.0-36.0); Mean Corpuscular Volume 83.6 fL (80.0-100.0); Monocytes # (auto) 0.5 10 ^3/uL (0-1.3); Monocytes % (auto) 7.2 % (0.0-12.0); Neutrophils # (auto) 3.5 10 ^3/uL (1.6-8.6); Neutrophils % (auto) 48.9 % (37.0-80.0); Nucleated Red Blood Cells % 0.2 %; Platelet Count (auto) 254 10^3/uL (140-450); Red Blood Cells 5.07 10^6/uL (4.5-5.90); White Blood Cell 7.2 10^3/uL (4.4-10.8)
[2024-01-21 18:47] LABS: Alanine Aminotransferase 37 U/L (7-40); Albumin 4.2 g/dL (3.2-4.8); Alkaline Phosphatase 115 U/L (46-116); Anion Gap 7 (5-15); Aspartate Aminotransferase 13 U/L (13-40); BUN/Creatinine Ratio 13.7 (10.0-20.0); Bilirubin, Total 0.4 mg/dL (0.2-1.0); Blood Urea Nitrogen 14 mg/dL (9-23); Calcium 9.6 mg/dL (8.7-10.4); Carbon Dioxide 28 mmol/L (20-31); Chloride 101 mmol/L (98-107); Glucose 321 mg/dL (74-106); INR 0.99 (0.9-1.15); Partial Thromboplastin Time 26.3 SEC (24.5-34.5); Potassium 3.7 mmol/L (3.5-5.1); Prothrombin Time 10.5 sec (9.3-11.8); Sodium 136 mmol/L (136-145); Total Protein 7.3 g/dL (5.7-8.2)
--- NOTE | 2024-01-21 19:15 | DVH ---
Exam: CT CT AB PEL WO CON-NO ORAL OR IV History: CALCIFIED LEFT URETERAL STENT Comparison Study: 11/20/2023 Technique: Multidetector CT of the abdomen and pelvis without contrast. Axial, coronal and sagittal m ultiplanar reformats were performed by the technologist on a separate workstation. Radiation Dose Information: CT Dose: CTDI volume is 20.29 mGy. Dose-length product is 1045.8 mGy*cm Findings: Bibasilar atelectasis. Partially visualized heart is unremarkable. Cholelithiasis with no evidence for acute cholecystitis. Liver, spleen, pancreas and adrenal glands u nremarkable. Mild nonspecific bilateral perirenal fat stranding. Left-sided double-J stent with the proximal end w ithin the left renal pelvis and the distal end within the urinary bladder. There is [id number] left hydronephrosis 0.6 x 0.4 cm calculus within the distal ureter adjacent to the double-J stent. Foci of air within the urinary bladder which may be iatrogenic. The urinary bladder is otherwise unre markable. Stomach is unremarkable. Small bowel loops unremarkable. Appendix is unremarkable. Sigmoid diverticul osis without diverticulitis. Moderate amount of fecal material within the colon. Small fat containing bilateral inguinal hernias. Tiny fat containing umbilical hernia. Noestructive o sseous lesions are noted. IMPRESSION: Redemonstration of left-sided double-J stent with the previously noted proximal ureteral calculus now within the distal ureter. [id number] left hydronephrosis ; worsened from prior imaging. Foci of air within the urinary bladder which may be iatrogenic. Recommend correlation with recent in strumentation with cystitis not excluded. Cholelithiasis with no CT evidence of acute cholecystitis. Additional findings as above.
[2024-01-21 20:30] VITALS: PULSE 70; RESP 16; O2SAT 96
[2024-01-21] MEDS: PIPERACILLIN-TAZOB 3.375GM 100 ML IV SCH (22:45)
--- NOTE | 2024-01-21 23:03 | DVHINCON2 ---
Date of service: Jan 21, 2024 Referring Physician Hospitalist Reason for Consultation Retained left ureteral stent and ureteral stone History of Present Illness Patient underwent left ESWL with left ureteral stent placement on 11/11/23. He presented to clinic for stent removal. But, cystoscopy with stent removal was met with resistence and stent could not be removed due to calcifications adherent to the stent. Past Medical History Kidney stone Past Surgical History Left ESWL with stent placement Family History: Patient reports no known family medical history. Allergies: Coded Allergies: NO KNOWN ALLERGIES (Unverified , 11/07/23) Home Meds Active Scripts Cephalexin Base (Cephalexin) 250 Mg Cap, 250 MG PO QID for 5 Days, #20 CAP Prov:YOLANDA GRAHAM RESIDENT 11/22/23 Tamsulosin Hcl (Flomax) 0.4 Mg Cap, 0.4 MG PO QPM for 30 Days, #30 CAP Prov:YOLANDA GRAHAM RESIDENT 11/12/23 Amlodipine Besylate (NORVASC TABLET) 5 Mg Tb, 5 MG PO DAILY for 30 Days, #30 TAB Prov:YOLANDA GRAHAM RESIDENT 11/12/23 Acetaminophen (Acetaminophen) 325 Mg Tab, 650 MG PO Q6HP PRN for 10 Days, #80 TAB Prov:YOLANDA GRAHAM RESIDENT 11/12/23 Reported Medications Atorvastatin Calcium (ATORVASTATIN CALCIUM) 10 Mg Tab, 10 MG PO DAILY, TAB 11/08/23 Cholecalciferol (Vitamin D) 1,000 Unit Tab, 1000 UNIT PO DAILY, TAB 11/08/23 Omeprazole Magnesium (Omeprazole) 20 Mg Tab, 20 MG PO DAILY, TAB 11/08/23 Lisinopril (Lisinopril) 2.5 Mg Tab, 2.5 MG PO DAILY, MG 11/08/23 Acarbose (Acarbose) 25 Mg Tab, 25 MG PO TIDWM, TAB 11/08/23 Current Medications Current Medications Medications (Trade) Dose Ordered Sig/Simran Route PRN Reason Start Time Stop Time Status Last Admin Nitroglycerin (Ntrostat Sublingual) 0.4 mg Q5MINP PRN SL FOR CHEST PAIN 01/21/24 17:15 Morphine Sulfate 2 mg Q30M PRN IV FOR CHEST PAIN 01/21/24 17:15 Piperacillin Sod/ Tazobactam Sod 100 ml @ 25 mls/hr Q8HR IV 01/21/24 22:00 02/04/24 21:59 Review of Systems Left flank pain Vital Signs Vital Signs Date Time Temp Pulse Resp B/P (MAP) Pulse Ox O2 Delivery O2 Flow Rate FiO2 01/21/24 17:11 97.9 72 17 166/81 (109) 94 97.9 Physical Exam NAD Abd: soft , left CVAT : normal NCCE Labs/Diagnostic Data Labs Test 01/21/24 18:22 01/21/24 18:09 Range/Units Urine Ketones 1+ H Negative White Blood Count 7.2 4.4-10.8 10^3/uL Red Blood Count 5.07 4.5-5.90 10^6/uL Hemoglobin 14.7 13.5-17.5 g/dL Hematocrit 42.4 41.0-53.0 % Mean Corpuscular Volume 83.6 80.0-100.0 fL Mean Corpuscular Hemoglobin 28.9 28.0-32.0 pg Mean Corpuscular Hemoglobin Concent 34.6 32.0-36.0 g/dL Red Cell Distribution Width 14.0 11.8-14.3 % Platelet Count 254 140-450 10^3/uL Mean Platelet Volume 8.5 6.9-10.8 fL Neutrophils (%) (Auto) 48.9 37.0-80.0 % Lymphocytes (%) (Auto) 41.2 10.0-50.0 % Monocytes (%) (Auto) 7.2 0.0-12.0 % Eosinophils (%) (Auto) 2.1 0.0-7.0 % Basophils (%) (Auto) 0.6 0.0-2.0 % Neutrophils # (Auto) 3.5 1.6-8.6 10 ^3/uL Lymphocytes # (Auto) 2.9 0.4-5.4 10 ^3/uL Monocytes # (Auto) 0.5 0-1.3 10 ^3/uL Eosinophils # (Auto) 0.1 0-0.8 10 ^3/uL Basophils # (Auto) 0 0-0.2 10 ^3/uL Nucleated Red Blood Cells 0.2 % Prothrombin Time 10.5 9.3-11.8 sec Prothrombin Time INR 0.99 0.9-1.15 Activated Partial Thromboplast Time 26.3 24.5-34.5 SEC Sodium Level 136 136-145 mmol/L Potassium Level 3.7 3.5-5.1 mmol/L Chloride Level 101 98-107 mmol/L Carbon Dioxide Level 28 20-31 mmol/L Anion Gap 7 5-15 Blood Urea Nitrogen 14 9-23 mg/dL Creatinine 1.02 0.700-1.30 mg/dL Glomerular Filtration Rate Calc 82 >90 mL/min BUN/Creatinine Ratio 13.7 10.0-20.0 Serum Glucose 321 H 74-106 mg/dL Calcium Level 9.6 8.7-10.4 mg/dL Total Bilirubin 0.4 0.2-1.0 mg/dL Aspartate Amino Transferase (AST) 13 13-40 U/L Alanine Aminotransferase (ALT) 37 7-40 U/L Alkaline Phosphatase 115 46-116 U/L Total Protein 7.3 5.7-8.2 g/dL Albumin 4.2 3.2-4.8 g/dL PATIENT: MISTY MOTA MACCT: [id number] UNIT: [id number] : 1960 LOC: CENTRAL ROOM / BED: [address] [place] [address] AGE / SEX: 63 / M ADM STATUS: ADM IN SERVICE 1713 ORDERING PHYSICIAN: NIKITA CUEVA MD PROCEDURE(s): ABPL - CT AB PEL WO CON-NO ORAL OR IV REASON: CALCIFIED LEFT URETERAL STENT ORDER NUMBER(s): [id number], ACCESSION NUMBER(s): [id number] Exam: CT CT AB PEL WO CON-NO ORAL OR IV History: CALCIFIED LEFT URETERAL STENT Comparison Study: 11/20/2023 Technique: Multidetector CT of the abdomen and pelvis without contrast. Axial, coronal and sagittal multiplanar reformats were performed by the technologist on a separate workstation. Radiation Dose Information: CT Dose: CTDI volume is 20.29 mGy. Dose-length product is 1045.8 mGy*cm Findings: Bibasilar atelectasis. Partially visualized heart is unremarkable. Cholelithiasis with no evidence for acute cholecystitis. Liver, spleen, pancreas and adrenal glands unremarkable. Mild nonspecific bilateral perirenal fat stranding. Left-sided double-J stent with the proximal end within the left renal pelvis and the distal end within the urinary bladder. There is pktj-ro-szighniq left hydronephrosis 0.6 x 0.4 cm calculus within the distal ureter adjacent to the double-J stent. Foci of air within the urinary bladder which may be iatrogenic. The urinary bladder is otherwise unremarkable. Stomach is unremarkable. Small bowel loops unremarkable. Appendix is unremarkable. Sigmoid diverticulosis without diverticulitis. Moderate amount of fecal material within the colon. Small fat containing bilateral inguinal hernias. Tiny fat containing umbilical hernia. Noestructive osseous lesions are noted. IMPRESSION: Redemonstration of left-sided double-J stent with the previously noted proximal ureteral calculus now within the distal ureter. Czgm-uh-dpsdrsmy left hydronephrosis ; worsened from prior imaging. Foci of air within the urinary bladder which may be iatrogenic. Recommend correlation with recent instrumentation with cystitis not excluded. Cholelithiasis with no CT evidence of acute cholecystitis. Additional findings as above. ATED BY: SARAH FRENCH DO DICTATED DATE/TIME: 01/21/241911 SIGNED BY: SARAH FRENCH DO SIGNED DATE/TIME: 01/21/241911 CC: Assessment Retained left ureteral stent with calcification Left ureteral stone Plan/Recommendation Cystoscopy with laser lithotripsy and stent removal, possible left ureteroscopy Plan discussed with: Patient, Other NIKITA CUEVA MD Jan 21, 2024 23:03
[2024-01-22] VITALS (9 sets, daily range): BP systolic 116–144; BP diastolic 73–82; PULSE 70–80; RESP 13–18; TEMP 98–98.8; O2SAT 92–99
[2024-01-22] MEDS ORDERED: DEXTROSE (50%) 50ML SYRG IV PRN (10:15)
--- NOTE | 2024-01-22 10:15 | DVHHP2 ---
Review of Systems Allergies: Coded Allergies: NO KNOWN ALLERGIES (Unverified , 11/07/23) Medications Current Medications Medications Dose Ordered Sig/Simran Route Start Time Stop Time Status Last Admin Dose Admin Nitroglycerin 0.4 mg Q5MINP PRN SL 01/21/24 17:15 Morphine Sulfate 2 mg Q30M PRN IV 01/21/24 17:15 Piperacillin Sod/ Tazobactam Sod 100 ml @ 25 mls/hr Q8HR IV 01/21/24 22:00 02/04/24 21:59 01/22/24 06:15 25 MLS/HR Exam Vital Signs Vital Signs Date Time Temp Pulse Resp B/P (MAP) Pulse Ox O2 Delivery O2 Flow Rate FiO2 01/22/24 09:35 98.0 78 17 136/76 (96) 97 98.0 01/22/24 08:10 Room Air* 0 21 Labs/Xrays Labs Test 01/21/24 18:22 01/21/24 18:09 Range/Units Urine Ketones 1+ H Negative White Blood Count 7.2 4.4-10.8 10^3/uL Red Blood Count 5.07 4.5-5.90 10^6/uL Hemoglobin 14.7 13.5-17.5 g/dL Hematocrit 42.4 41.0-53.0 % Mean Corpuscular Volume 83.6 80.0-100.0 fL Mean Corpuscular Hemoglobin 28.9 28.0-32.0 pg Mean Corpuscular Hemoglobin Concent 34.6 32.0-36.0 g/dL Red Cell Distribution Width 14.0 11.8-14.3 % Platelet Count 254 140-450 10^3/uL Mean Platelet Volume 8.5 6.9-10.8 fL Neutrophils (%) (Auto) 48.9 37.0-80.0 % Lymphocytes (%) (Auto) 41.2 10.0-50.0 % Monocytes (%) (Auto) 7.2 0.0-12.0 % Eosinophils (%) (Auto) 2.1 0.0-7.0 % Basophils (%) (Auto) 0.6 0.0-2.0 % Neutrophils # (Auto) 3.5 1.6-8.6 10 ^3/uL Lymphocytes # (Auto) 2.9 0.4-5.4 10 ^3/uL Monocytes # (Auto) 0.5 0-1.3 10 ^3/uL Eosinophils # (Auto) 0.1 0-0.8 10 ^3/uL Basophils # (Auto) 0 0-0.2 10 ^3/uL Nucleated Red Blood Cells 0.2 % Prothrombin Time 10.5 9.3-11.8 sec Prothrombin Time INR 0.99 0.9-1.15 Activated Partial Thromboplast Time 26.3 24.5-34.5 SEC Sodium Level 136 136-145 mmol/L Potassium Level 3.7 3.5-5.1 mmol/L Chloride Level 101 98-107 mmol/L Carbon Dioxide Level 28 20-31 mmol/L Anion Gap 7 5-15 Blood Urea Nitrogen 14 9-23 mg/dL Creatinine 1.02 0.700-1.30 mg/dL Glomerular Filtration Rate Calc 82 >90 mL/min BUN/Creatinine Ratio 13.7 10.0-20.0 Serum Glucose 321 H 74-106 mg/dL Calcium Level 9.6 8.7-10.4 mg/dL Total Bilirubin 0.4 0.2-1.0 mg/dL Aspartate Amino Transferase (AST) 13 13-40 U/L Alanine Aminotransferase (ALT) 37 7-40 U/L Alkaline Phosphatase 115 46-116 U/L Total Protein 7.3 5.7-8.2 g/dL Albumin 4.2 3.2-4.8 g/dL Assessment/Plan Assessment/Plan SEE DICTATED NOTE Plan discussed with: Patient My Orders Orders - PATRICIO ARTHUR MD Procedure Category Date Status Time Sodium Chloride 0.9% PHA 01/22/24 Logged 10:15 Glucose Blood PHA 01/22/24 Logged (Accu-Chek Comfort 12:00 Insulin R (Human) PHA 01/22/24 Logged (Insulin R) 12:00 Dextrose 50% Syringe PHA 01/22/24 Logged 10:15 Amlodipine Tablet PHA 01/23/24 Logged (Norvasc Tablet) 10:00 Complete Blood Count LAB 01/23/24 Verified 06:00 Comprehensive LAB 01/23/24 Verified Metabolic Panel 06:00 Tamsulosin PHA 01/22/24 Logged Hydrochloride (Flomax) 18:00 Date of Service: Jan 22, 2024 Billing Provider: PATRICIO ARTHUR MD Common Visit Codes: [id number] INP/OBS CARE (HIGH) Secondary Visit Codes: 86460-[id number] CARE PLAN 30 MINUTES PATRICIO ARTHUR MD Jan 22, 2024 10:15
--- NOTE | 2024-01-22 10:30 | DVHHP ---
HISTORY OF PRESENT ILLNESS: The patient is a 63-year-old gentleman who has been admitted after he underwent cystoscopy for removal of a stent, which could not be removed because of resistance. The patient this time complains of mild hematuria. No abdominal pain. No nausea or vomiting. No chest pain or shortness of breath. REVIEW OF SYSTEMS: Review of rest of systems is otherwise negative. PAST MEDICAL HISTORY: Significant for left-sided kidney stones with lithotripsy as well as diabetes, hypertension and hyperlipidemia. MEDICATIONS: Include amlodipine, Lipitor, acarbose, lisinopril, Flomax. ALLERGIES: No known drug allergies. SOCIAL HISTORY: Denies smoking or alcohol. Lives at home with his . FAMILY HISTORY: Negative. PHYSICAL EXAMINATION: GENERAL: The patient is awake, alert. VITAL SIGNS: Temperature of 98, pulse 78 per minute, blood pressure 136/76. SHEENT: Unremarkable. NECK: There is no JVD, no pedal edema. LUNGS: Equal bilaterally. No added sounds. CARDIOVASCULAR: S1, S2 is regular. No murmurs. ABDOMEN: Soft. There is no organomegaly. NEUROLOGIC: Nonfocal. MUSCULOSKELETAL: Normal. ASSESSMENT AND PLAN: * Diabetes mellitus, for which the patient was placed on sliding scale insulin. * Hypertension, for which he will continue on amlodipine. * Obesity. * Hyperlipidemia. * Status post left renal stone with lithotripsy with stent placement. The patient is currently n.p.o. and is supposed to go for cystoscopy with a reattempt at stent removal today. * The patient's advanced care planning, he is a FULL CODE. Time spent was 19 minutes. MD DOMENICA Javier/ELIECER TID: [id number] RECEIPT: [id number]
[2024-01-22] MEDS: SODIUM CHLORIDE 0.9% 1,000 ML IV SCH (11:28)
[2024-01-22] MEDS: InsuLIN REG 1unit/0.01ml Soln (100units/ml) SC SCH (11:39)
[2024-01-22] MEDS: ACCU-CHEK COMFORT CURVE STRIP VI SCH (12:00)
[2024-01-22] MEDS ORDERED: LIDOCAINE 2% (LOCAL ANESTH.) PF 5ml SDV ONE (15:19)
[2024-01-22] MEDS ORDERED: PROPOFOL 10 MG/ML 20 ML IV ONE (15:19)
[2024-01-22] MEDS ORDERED: ONDANSETRON HCL 4 MG/2 ML VIAL ONE (15:19)
[2024-01-22] MEDS ORDERED: MIDAZOLAM HCL 2MG/2ML 2ml VIAL (1mg/ml) ONE (15:19)
[2024-01-22] MEDS ORDERED: HYDROmorphone HCL 2 MG/ML VL/or syr ONE (15:19)
[2024-01-22] MEDS ORDERED: KETOROLAC TROMETH 30 MG/ML 1ML VIAL ONE (15:19)
[2024-01-22] MEDS ORDERED: fentaNYL CITRATE 100 MCG/2 ML VL ONE (15:19)
[2024-01-22] MEDS ORDERED: GLYCOPYRROLATE 0.2 MG/ML 1ML VIAL ONE (15:19)
[2024-01-22] MEDS ORDERED: HYDROmorphone HCL 2 MG/ML VL/or syr IV PRN (16:15)
[2024-01-22] MEDS: ACCU-CHEK COMFORT CURVE STRIP VI ONE (16:15)
--- NOTE | 2024-01-22 16:34 | POSTOP ---
Post-Operative Note Post-Operative Note Preop Diagnosis Left distal ureteral calculi Encrusted left ureteral stent Postop Diagnosis: Same Operation performed Cystoscopy with left ureteral stent removal Left ureteroscopic laser lithotripsy Specimen Ureteral calculus fragments Anesthesia: General Anesthesiologist: Bakari Cueva Date 01/22/24 Time 16:32 NIKITA CUEVA MD Jan 22, 2024 16:33
[2024-01-22] MEDS: InsuLIN REG 1unit/0.01ml Soln (100units/ml) SC ONE (16:48)
[2024-01-22] MEDS: IOHEXOL 300 MG/ML 100ML BOTTLE IJ ONE (16:49)
[2024-01-22] MEDS: ONDANSETRON HCL 4 MG/2 ML VIAL IV ONE (16:50)
[2024-01-22] MEDS: ceFAZolin 2 GM/D5W100ml 100 ML IV ONE (16:50)
[2024-01-22] MEDS ORDERED: SUGAMMADEX 200mg/2ml Vial (100MG/ML) IV ONE (17:01)
[2024-01-22] MEDS: TAMSULOSIN HYDROCHLORIDE 0.4 MG CAP PO SCH (17:53)
--- NOTE | 2024-01-22 19:35 | DVH ---
EXAM: XY KUB ABDOMEN SINGLE VIEW, XY C ARM FLUOROSCOPY UP TO 60MIN HISTORY: LEFT STENT PLACEMENT FLUOROSCOPY TIME: 18.4 seconds Total dose: 4.71 mGy FLUOROSCOPY IMAGES: 1 TECHNIQUE: Intraoperative radiographs of the abdomen were obtained. COMPARISON: XY KUB ABDOMEN SINGLE VIEW on DOS: 11/11/23, XY KUB ABDOMEN SINGLE VIEW on DOS: 11/08/23 FINDINGS/IMPRESSION: Refer to intraoperative report for further evaluation.
[2024-01-22] MEDS ORDERED: ONDANSETRON HCL 4 MG/2 ML VIAL IV PRN (21:15)
[2024-01-22] MEDS ORDERED: HYDROcodone-ACET 5/325MG TAB PO PRN (21:15)
[2024-01-23] VITALS (8 sets, daily range): BP systolic 113–135; BP diastolic 59–84; PULSE 54–82; RESP 16–19; TEMP 97.1–99; O2SAT 91–97
[2024-01-23 07:01] LABS: Basophils # (auto) 0 10 ^3/uL (0-0.2); Basophils % (auto) 0.4 % (0.0-2.0); Eosinophils # (auto) 0.2 10 ^3/uL (0-0.8); Eosinophils % (auto) 2.1 % (0.0-7.0); Hematocrit 40.5 % (41.0-53.0); Hemoglobin 13.3 g/dL (13.5-17.5); Lymphocytes # (auto) 2.5 10 ^3/uL (0.4-5.4); Lymphocytes % (auto) 32.1 % (10.0-50.0); Mean Corpuscular Hgb Conc. 32.9 g/dL (32.0-36.0); Monocytes # (auto) 0.6 10 ^3/uL (0-1.3); Monocytes % (auto) 7.2 % (0.0-12.0); Neutrophils # (auto) 4.5 10 ^3/uL (1.6-8.6); Neutrophils % (auto) 58.2 % (37.0-80.0); Nucleated Red Blood Cells % 0.1 %; Platelet Count (auto) 227 10^3/uL (140-450); Red Blood Cells 4.77 10^6/uL (4.5-5.90); Red Cell Distribution Width 13.9 % (11.8-14.3); White Blood Cell 7.8 10^3/uL (4.4-10.8)
[2024-01-23 07:24] LABS: Alanine Aminotransferase 63 U/L (7-40); Alkaline Phosphatase 117 U/L (46-116); Anion Gap 6 (5-15); BUN/Creatinine Ratio 11.6 (10.0-20.0); Blood Urea Nitrogen 11 mg/dL (9-23); Calcium 9.1 mg/dL (8.7-10.4); Carbon Dioxide 30 mmol/L (20-31); Chloride 102 mmol/L (98-107); Glucose 332 mg/dL (74-106); Potassium 3.8 mmol/L (3.5-5.1); Sodium 138 mmol/L (136-145)
[2024-01-23 07:26] LABS: Albumin 3.5 g/dL (3.2-4.8); Aspartate Aminotransferase 34 U/L (13-40); Bilirubin, Total 0.7 mg/dL (0.2-1.0); Total Protein 6.1 g/dL (5.7-8.2)
[2024-01-23] MEDS: amLODIPine BESYLATE 5 MG TAB PO SCH (09:30)
--- NOTE | 2024-01-23 13:28 | DVHPN2 ---
Reviewed: Care Plan, H&P, Labs, Medications, Previous Orders, Radiology Changes from previous H/P or p: No Changes Objective Vitals Vital Signs Date Time Temp Pulse Resp B/P (MAP) Pulse Ox O2 Delivery O2 Flow Rate FiO2 01/23/24 09:30 113/59 01/23/24 09:00 97.1 54 17 94 97.1 01/23/24 08:10 Room Air* 0 21 Intake/Output Intake and Output 01/23/24 07:00 Intake Total 550 ml Output Total 900 ml Balance -350 ml Intake Oral 350 ml IV Total 200 ml Output Urine Total 900 ml Medications Current Medications Medications Dose Ordered Sig/Simran Route Start Time Stop Time Status Last Admin Dose Admin Nitroglycerin 0.4 mg Q5MINP PRN SL 01/21/24 17:15 Morphine Sulfate 2 mg Q30M PRN IV 01/21/24 17:15 Piperacillin Sod/ Tazobactam Sod 100 ml @ 25 mls/hr Q8HR IV 01/21/24 22:00 02/04/24 21:59 01/23/24 05:27 25 MLS/HR Sodium Chloride 1,000 ml @ 100 mls/hr Q10H IV 01/22/24 10:15 01/23/24 03:30 100 MLS/HR Diagnostic Test (Pha) 1 strip Q6HR 01/22/24 12:00 01/23/24 12:26 1 STRIP Insulin Human Regular Q6HR SC 01/22/24 12:00 01/23/24 12:25 8 UNITS Dextrose 50 ml UD PRN IV 01/22/24 10:15 Amlodipine Besylate 5 mg DAILY PO 01/23/24 10:00 01/23/24 09:30 5 MG Tamsulosin HCl 0.4 mg QPM PO 01/22/24 18:00 01/22/24 17:53 0.4 MG Ondansetron HCl 4 mg Q8HPRN PRN IV 01/22/24 21:15 Acetaminophen/ Hydrocodone Bitart 1 tab Q6HPRN PRN PO 01/22/24 21:15 Laboratory Results Laboratory Tests 01/23/24 06:25 Chemistry Test 01/23/24 06:25 Albumin 3.5 g/dL (3.2-4.8) Calcium Level 9.1 mg/dL (8.7-10.4) Total Protein 6.1 g/dL (5.7-8.2) LFT Test 01/23/24 06:25 Alanine Aminotransferase (ALT) 63 U/L (7-40) H Alkaline Phosphatase 117 U/L (46-116) H Aspartate Amino Transferase (AST) 34 U/L (13-40) Total Bilirubin 0.7 mg/dL (0.2-1.0) Urinalysis Test 01/21/24 18:22 Urine Ketones 1+ (Negative) H Labs and/or images reviewed: Labs reviewed by me, Image(s) reviewed by me Assessment/Plan Assessment/Plan * Diabetes mellitus, for which the patient was placed on sliding scale insulin. * Hypertension, for which he will continue on amlodipine. * Obesity. * Hyperlipidemia. * Status post left renal stone with lithotripsy with stent placement. Status post Cystoscopy with left ureteral stent removal, left ureteroscopic laser lithotripsy by Urology Dr. Russell on 01/22/2024 * time spent 45 minutes Advanced care planning time 20 minutes Patient is full code Plan discussed with: Patient Date of Service: Jan 23, 2024 Billing Provider: LULI VALLADARES MD Common Visit Codes: [id number] INP/OBS CARE(HIGH) Secondary Visit Codes: [id number] CARE PLAN 30 MINUTES LULI VALLADARES MD Jan 23, 2024 13:28
--- NOTE | 2024-01-23 15:22 | DVHPN2 ---
Progress Note - Dictate Date Seen: Jan 23, 2024 Medical Necessity Reason Pt with a Central, PICC or Fol: Yes The following are medically ne: Guzman Catheter Medical Necessity Reason Postop day 1. Following left ureteroscopic laser lithotripsy Subjective Tolerating the Guzman catheter vital signs Vital Sign Date Time Temp Pulse Resp B/P (MAP) Pulse Ox O2 Delivery O2 Flow Rate FiO2 01/23/24 13:00 98.5 74 17 135/84 (101) 91 98.5 01/23/24 08:10 Room Air* 0 21 Total Intake and Output 01/22/24 01/22/24 01/23/24 15:00 23:00 07:00 Intake Total 200 ml 0 ml 350 ml Output Total 900 ml Balance 200 ml 0 ml -550 ml medications Current Medications Medications Dose Ordered Sig/Simran Route Start Time Stop Time Status Last Admin Dose Admin Nitroglycerin 0.4 mg Q5MINP PRN SL 01/21/24 17:15 Morphine Sulfate 2 mg Q30M PRN IV 01/21/24 17:15 Piperacillin Sod/ Tazobactam Sod 100 ml @ 25 mls/hr Q8HR IV 01/21/24 22:00 02/04/24 21:59 01/23/24 15:04 25 MLS/HR Sodium Chloride 1,000 ml @ 100 mls/hr Q10H IV 01/22/24 10:15 01/23/24 03:30 100 MLS/HR Diagnostic Test (Pha) 1 strip Q6HR 01/22/24 12:00 01/23/24 12:26 1 STRIP Insulin Human Regular Q6HR SC 01/22/24 12:00 01/23/24 12:25 8 UNITS Dextrose 50 ml UD PRN IV 01/22/24 10:15 Amlodipine Besylate 5 mg DAILY PO 01/23/24 10:00 01/23/24 09:30 5 MG Tamsulosin HCl 0.4 mg QPM PO 01/22/24 18:00 01/22/24 17:53 0.4 MG Ondansetron HCl 4 mg Q8HPRN PRN IV 01/22/24 21:15 Acetaminophen/ Hydrocodone Bitart 1 tab Q6HPRN PRN PO 01/22/24 21:15 objective Urethral catheter was placed postoperatively for decompression purposes only. He does not have a stent. Urine is clear laboratory and microbiology Laboratory Tests 01/23/24 06:25 Test 01/23/24 06:25 Range/Units Serum Glucose 332 H 74-106 mg/dL Problem List Status post left ureteroscopic laser lithotripsy and stent removal Assessment/Plan Patient had an issue with retained ureteral stent that was left in place for almost six months. Will remove Guzman catheter and discharge patient and follow- up as outpatient Plan discussed with: Patient NIKITA CUEVA MD Jan 23, 2024 15:22
[2024-01-24] VITALS (7 sets, daily range): BP systolic 140–164; BP diastolic 80–86; PULSE 70–78; RESP 16–20; TEMP 97.5–98; O2SAT 92–98
[2024-01-24] MEDS ORDERED: CIPR-173 PO (09:38)
[2024-01-24] MEDS ORDERED: TRAM-626 PO (09:38)
[2024-01-24] MEDS ORDERED: TAMS-35 PO (09:38)
--- NOTE | 2024-01-24 09:46 | DVHDS2 ---
Discharge Summary Date of Admission Jan 21, 2024 at 16:53 Date of Discharge: Jan 24, 2024 Admitting Diagnosis Left flank pain Wounds: Left ureteral stent placement Labs/Diagnostic Data: Laboratory Results Test 01/24/24 05:03 01/23/24 06:25 01/21/24 18:22 01/21/24 18:09 POC Glucose 228 mg/dl (70-106) White Blood Count 7.8 10^3/uL (4.4-10.8) Red Blood Count 4.77 10^6/uL (4.5-5.90) Hemoglobin 13.3 g/dL (13.5-17.5) Hematocrit 40.5 % (41.0-53.0) Mean Corpuscular Volume 85.0 fL (80.0-100.0) Mean Corpuscular Hemoglobin 28.0 pg (28.0-32.0) Mean Corpuscular Hemoglobin Concent 32.9 g/dL (32.0-36.0) Red Cell Distribution Width 13.9 % (11.8-14.3) Platelet Count 227 10^3/uL (140-450) Mean Platelet Volume 8.4 fL (6.9-10.8) Neutrophils (%) (Auto) 58.2 % (37.0-80.0) Lymphocytes (%) (Auto) 32.1 % (10.0-50.0) Monocytes (%) (Auto) 7.2 % (0.0-12.0) Eosinophils (%) (Auto) 2.1 % (0.0-7.0) Basophils (%) (Auto) 0.4 % (0.0-2.0) Neutrophils # (Auto) 4.5 10 ^3/uL (1.6-8.6) Lymphocytes # (Auto) 2.5 10 ^3/uL (0.4-5.4) Monocytes # (Auto) 0.6 10 ^3/uL (0-1.3) Eosinophils # (Auto) 0.2 10 ^3/uL (0-0.8) Basophils # (Auto) 0 10 ^3/uL (0-0.2) Nucleated Red Blood Cells 0.1 % Sodium Level 138 mmol/L (136-145) Potassium Level 3.8 mmol/L (3.5-5.1) Chloride Level 102 mmol/L (98-107) Carbon Dioxide Level 30 mmol/L (20-31) Anion Gap 6 (5-15) Blood Urea Nitrogen 11 mg/dL (9-23) Creatinine 0.95 mg/dL (0.700-1.30) Glomerular Filtration Rate Calc 89 mL/min (>90) BUN/Creatinine Ratio 11.6 (10.0-20.0) Serum Glucose 332 mg/dL (74-106) Calcium Level 9.1 mg/dL (8.7-10.4) Total Bilirubin 0.7 mg/dL (0.2-1.0) Aspartate Amino Transferase (AST) 34 U/L (13-40) Alanine Aminotransferase (ALT) 63 U/L (7-40) Alkaline Phosphatase 117 U/L (46-116) Total Protein 6.1 g/dL (5.7-8.2) Albumin 3.5 g/dL (3.2-4.8) Urine Ketones 1+ (Negative) Prothrombin Time 10.5 sec (9.3-11.8) Prothrombin Time INR 0.99 (0.9-1.15) Activated Partial Thromboplast Time 26.3 SEC (24.5-34.5) Other Laboratory Tests 01/23/24 06:25 Brief Hx & Hospital Course: 63-year-old male with a history of hypertension hyperlipidemia came in for left flank pain . Diagnosed with a left renal stone had lithotripsy and left ureteral stent placement by Urology Dr. Conway subsequently patient had cystoscopy with removal of the left ureteral stent. Patient is afebrile treated with the Zosyn. Cleared for discharge by Urology. Prescribed with the Cipro tramadol and Flomax he will follow up with Urology Dr. Russell in one week. Patient goes home with Guzman with leg bag Consults/Reason for consult Urology Dr. Russell Operations or Procedures Left ureteral stent placement Condition at Discharge: Fair Final Diagnosis/Problems List * Diabetes mellitus, for which the patient was placed on sliding scale insulin. * Hypertension, for which he will continue on amlodipine. * Obesity. * Hyperlipidemia. * Status post left renal stone with lithotripsy with stent placement. Status post Cystoscopy with left ureteral stent removal, left ureteroscopic laser lithotripsy by Urology Dr. Russell on 01/22/2024 Discharge Disposition: Home Discharge Instruct/Medications Diet: Cardiac 2g Na,low cholest Activity: Light activity Follow Up/Referral: Follow up with the primary Dr in one week Follow up with Urology Dr. Russell in one week Resume all previous home medications Medications: Flomax Cipro tramadol Transmitted to the pharmacy 35 (Time taken for discharge summary 35 minutes) Discharge Statement: "Patient was advised to return to the ER or call 911 if any headaches, dizziness, shortness of breath, chest pain, abdominal pain, bleeding, fevers, or worsening of medical condition. Patient was counseled about treatment plan, medications, possible side effects, patientverbalized understanding. All questions were answered to the best of my ability. This discharge took greater then 30 minutes in planning, reviewing documentation, counseling the patient, and discussing with other team members." ASSESSMENT ASSESSMENT Hospital Course Improved Assessment * Diabetes mellitus, for which the patient was placed on sliding scale insulin. * Hypertension, for which he will continue on amlodipine. * Obesity. * Hyperlipidemia. * Status post left renal stone with lithotripsy with stent placement. Status post Cystoscopy with left ureteral stent removal, left ureteroscopic laser lithotripsy by Urology Dr. Russell on 01/22/2024 Date of Service: Jan 24, 2024 Billing Provider: LULI VALLADARES MD Common Visit Codes: [id number]-RWB/OBS DISCH DAY >30min LULI VALLADARES MD Jan 24, 2024 09:46
== END 2024-01-24 15:50 | disposition home or self-care (01) | DRG 694 ==
LOC: CENTRAL 16:53
PROVIDERS: ADMIT Urology; ATTEND Family Medicine
PROC: 0TC78ZZ Extirpation of Matter from Left Ureter, Via Natural or Artificial Opening Endoscopic (ICD-10-PCS; 2024-01-22)
PROC: BT1F1ZZ Fluoroscopy of Left Kidney, Ureter and Bladder using Low Osmolar Contrast (ICD-10-PCS; 2024-01-22)
PROC: 0TP98DZ Removal of Intraluminal Device from Ureter, Via Natural or Artificial Opening Endoscopic (ICD-10-PCS; principal; 2024-01-22 15:00)
DX: N13.2 Hydronephrosis with renal and ureteral calculous obstruction (principal); I10 Essential (primary) hypertension; E11.9 Type 2 diabetes mellitus without complications; E78.5 Hyperlipidemia, unspecified; E66.9 Obesity, unspecified; Z46.6 Encounter for fitting and adjustment of urinary device; Z68.31 Body mass index [BMI] 31.0-31.9, adult; Z79.2 Long term (current) use of antibiotics; Z79.899 Other long term (current) drug therapy
CPT/HCPCS: 36415; 71045; 74018; 74176; 76000; 80053; 82360; 82962; 85025; 85610; 85730; 86850; 86900; 86901; G0378; J1815; J1885; J2003; J2250; J2405; J2543; J2704

== ENCOUNTER → 2024-05-18 | Outpatient (CLI) | payer MEDICARE, MEDICAID ==
[~2024-05-18] VITALS: Ht 167.6 cm; Wt 95.3 kg
[~2024-05-18] MED LIST changes: +CIPR-173 PO; +LISI-275 PO; +METF-372 PO; +TRAM-626 PO
[2024-05-18 10:14] LABS: Urine Bacteria None Seen /hpf (None Seen)
[2024-05-18 10:21] LABS: Basophils # (auto) 0.1 10 ^3/uL (0-0.2); Basophils % (auto) 0.9 % (0.0-2.0); Eosinophils # (auto) 0.3 10 ^3/uL (0-0.8); Eosinophils % (auto) 4.2 % (0.0-7.0); Hematocrit 47.2 % (41.0-53.0); Hemoglobin 16.2 g/dL (13.5-17.5); Lymphocytes # (auto) 3.2 10 ^3/uL (0.4-5.4); Lymphocytes % (auto) 48.7 % (10.0-50.0); Mean Corpuscular Hemoglobin 28.8 pg (28.0-32.0); Mean Corpuscular Hgb Conc. 34.4 g/dL (32.0-36.0); Mean Corpuscular Volume 83.5 fL (80.0-100.0); Monocytes # (auto) 0.5 10 ^3/uL (0-1.3); Monocytes % (auto) 7.7 % (0.0-12.0); Neutrophils # (auto) 2.5 10 ^3/uL (1.6-8.6); Neutrophils % (auto) 38.5 % (37.0-80.0); Nucleated Red Blood Cells % 0.1 %; Platelet Count (auto) 252 10^3/uL (140-450); Red Blood Cells 5.65 10^6/uL (4.5-5.90); Red Cell Distribution Width 13.6 % (11.8-14.3); White Blood Cell 6.6 10^3/uL (4.4-10.8)
[2024-05-18 10:43] LABS: Urine Blood Negative /uL (Negative); Urine Clarity Clear (Clear); Urine Color Yellow (Yellow); Urine Mucus FEW (None Seen); Urine Protein, UAD Negative (Negative); Urine Squamous Epithelial Cell None Seen /hpf (<5); Urine Urobilinogen Normal (Negative); Urine WBC < 1 /HPF (0-3)
[2024-05-18 10:55] LABS: INR 0.96 (0.9-1.15); Partial Thromboplastin Time 26.1 SEC (24.5-34.5); Prothrombin Time 10.2 sec (9.3-11.8)
[2024-05-18 11:07] LABS: Alanine Aminotransferase 31 U/L (7-40); Albumin 4.7 g/dL (3.2-4.8); Anion Gap 10 (5-15); BUN/Creatinine Ratio 16.4 (10.0-20.0); Bilirubin, Total 0.5 mg/dL (0.2-1.0); Blood Urea Nitrogen 20 mg/dL (9-23); Calcium 9.9 mg/dL (8.7-10.4); Carbon Dioxide 26 mmol/L (20-31); Chloride 100 mmol/L (98-107); Potassium 4.9 mmol/L (3.5-5.1); Total Protein 7.8 g/dL (5.7-8.2)
[2024-05-18 11:12] LABS: Alkaline Phosphatase 136 U/L (46-116); Aspartate Aminotransferase 13 U/L (13-40); Glucose 366 mg/dL (74-106); Sodium 136 mmol/L (136-145)
[2024-05-19 11:42] VITALS: BP 138/80; PULSE 82; RESP 18; TEMP 97.3; O2SAT 94
== END | disposition home or self-care (01) ==
LOC: LAB 09:49 → SUR 05-19 09:43 → EDSTATUS 05-19 16:33
PROVIDERS: ATTEND Urology
DX: R06.02 Shortness of breath (principal); Z53.8 Procedure and treatment not carried out for other reasons; Z01.818 Encounter for other preprocedural examination; N47.1 Phimosis; N20.0 Calculus of kidney; R73.9 Hyperglycemia, unspecified
CPT/HCPCS: 36415; 80053; 81001; 82962; 85025; 85610; 85730; 87086

== ENCOUNTER 2024-10-19 10:19 | Outpatient (CLI) | payer MEDICARE, MEDICAID ==
[~2024-10-19 10:19] MED LIST changes: -CEPH250C2 PO; -CIPR-173 PO; -LISI2.5T47 PO; -OMEP-434 PO; -TRAM-626 PO
[2024-10-19 11:08] LABS: Anion Gap 8 (5-15); Calcium 9.4 mg/dL (8.7-10.4); Carbon Dioxide 29 mmol/L (20-31); Chloride 100 mmol/L (98-107); Potassium 4.9 mmol/L (3.5-5.1); Sodium 137 mmol/L (136-145)
[2024-10-19 11:14] LABS: BUN/Creatinine Ratio 16.7 (10.0-20.0); Blood Urea Nitrogen 17 mg/dL (9-23); Glucose 249 mg/dL (74-106); Triglycerides 142 mg/dL (< 150)
[2024-10-19 11:16] LABS: Cholesterol 102 mg/dL (< 200)
[2024-10-19 11:17] LABS: HDL Cholesterol 29 mg/dL (40-59)
== END 2024-10-19 17:00 | disposition home or self-care (01) ==
LOC: LAB 10:19
PROVIDERS: ATTEND Internal Medicine
DX: I12.9 Hypertensive chronic kidney disease with stage 1 through stage 4 chronic kidney disease, or unspecified chronic kidney disease (principal); N18.2 Chronic kidney disease, stage 2 (mild); E11.22 Type 2 diabetes mellitus with diabetic chronic kidney disease; E78.2 Mixed hyperlipidemia
CPT/HCPCS: 36415; 80048; 80061; 83036